=== PATIENT | female | born 1990 | race Caucasian/White ===

== ENCOUNTER 2019-10-02 09:10 | Day surgery (SDC) | payer MEDICAID, OTHER ==
[~2019-10-02 09:10] MED LIST: Buffered Lidocaine 1% SYRIN* 1 ML/SYRINGE INTRADERM ONE; Dexamethasone TAB* 4 MG PO ONE; DiMENhydriNATE IV* 50 MG/ML VIAL IV PUSH PRN; Famotidine IV* 10 MG/ML 2 ML (20 mg) IV ONE; HYDROmorphone INJ1* 1 MG/ML SYRINGE IV PRN; Lactated Ringers 1000 ML Bag* 1,000 ML IV SCH; Naloxone* 0.4 MG/ML 1 ML VIAL IV PRN; Ondansetron ODT TAB* 4 MG PO ONE; PROCHLORPERAZINE INJ 5 MG/ML 2 ML VIAL IV PRN; oxyCODONE TAB* 5 MG TAB PO PRN
[2019-10-02] MEDS ORDERED: Famotidine IV* 10 MG/ML 2 ML (20 mg) ONE (10:00)
[2019-10-02] MEDS ORDERED: Ondansetron ODT TAB* 4 MG ONE (10:00)
[2019-10-02] MEDS ORDERED: Dexamethasone TAB* 4 MG ONE (10:00)
[2019-10-02] MEDS ORDERED: Ferric Subsulfate* 1 dose = 10 mL Solution TOPICAL ONE (11:00)
[2019-10-02] MEDS ORDERED: Midazolam* 1 MG/ML 5 ML VIAL (5 MG) ONE (11:04)
[2019-10-02] MEDS ORDERED: KETAMINE HCL* 50 MG/ML 10 ML VIAL ONE (11:04)
[2019-10-02] MEDS ORDERED: fentaNYL* 50 MCG/ML 2 ML VIAL (100 MCG VIAL) ONE ×2 (11:04→13:31)
[2019-10-02] MEDS ORDERED: Lidocaine 2% PF * 5 ML VIAL ONE (11:06)
[2019-10-02] MEDS ORDERED: Ketorolac INJ* 30 MG/ML 1 ML VIAL ONE (11:06)
[2019-10-02] MEDS ORDERED: Propofol* 10 MG/ML 20 ML BTL ONE (11:06)
[2019-10-02] MEDS ORDERED: Lidocaine 1% INJ* 10 MG/ML 30 ML SDV ONE (11:55)
[2019-10-02] MEDS ORDERED: VASOPRESSIN 20 UNITS/ML 1 ML VIAL ONE (11:55)
[2019-10-02] MEDS ORDERED: Iodine Strong (LUGOL'S)* 14 ML BTL ONE (11:55)
[2019-10-02] MEDS ORDERED: Acetic Acid 0.25%* 250 ML BTL ONE (12:24)
[2019-10-02] MEDS ORDERED: Acetaminophen IV 1GM/100ML * 100 ML ONE (12:28)
[2019-10-02] MEDS ORDERED: DiMENhydriNATE IV* 50 MG/ML VIAL ONE (13:28)
[2019-10-02] MEDS: fentaNYL* 50 MCG/ML 2 ML VIAL (100 MCG VIAL) IV PRN ×3 (13:32→13:54)
[2019-10-02] MEDS ORDERED: oxyCODONE TAB* 5 MG TAB ONE (13:57)
[2019-10-02 14:48] VITALS: BP 133/86
--- NOTE | 2019-10-02 21:44 | OP ---
DATE OF OPERATION: 10/02/19 [facility] DATE OF : 89 SURGEON: Jero Gamble MD ANESTHESIOLOGIST: Dr. Busby. ANESTHESIA: General endotracheal anesthesia. PRE-OP DIAGNOSES: Severe cervical dysplasia and IUD removal and insertion. POST-OP DIAGNOSES: Severe cervical dysplasia and IUD removal and insertion. OPERATIVE PROCEDURE: Colposcopy; Strange cone biopsy of the cervix, size medium extended; endocervical curettage, removal of Liletta IUD and insertion of Mirena IUD. ESTIMATED BLOOD LOSS: Approximately 50 cc. SPECIMENS: Cone biopsy in 2 parts and endocervical curettage. FINDINGS: Midline cervix, Liletta IUD intact at removal. Acetowhite changes at 1 and 7 o'clock. No abnormal vessels seen. Uterus sounds to 8.5. COMPLICATIONS: None. COUNTS: Sponge, lap, and needle count correct x2. CONDITION: The patient was brought to recovery room awake and in stable condition. DESCRIPTION OF PROCEDURE: The patient was brought to the operating room. When general anesthesia was found to be adequate, the patient was draped in the usual sterile fashion in the dorsal lithotomy position. A prep was not performed because we are doing a colposcopy. A time-out was performed. Urine test was confirmed to be negative. A coated speculum was inserted. The cervix was visualized. Liletta strings visible. Decision was made to remove Liletta as the strings would be cut during the cone biopsy making future removal difficult. Liletta IUD strings were grasped with forcep and the IUD was removed with one gentle pull. The Liletta was examined and found to be intact with both strings. Colposcopy was performed with vinegar and Lugol's. Acetowhite changed at 1 and 7, did not extend far out onto cervix. Strange cone size medium extended was performed, encompassing the acetowhite white areas. the cut was at 12 o'clock. The specimen was removed in 2 parts, so 12 to 6 o'clock and 6 to 11:59. The specimen in half upon removal from the vagibnal canal. Endocervical curettage was performed. Hemostasis was achieved with the roller-ball cautery and Monsel solution. When hemostasis was achieved, the cervix was prepped with Betadine. The anterior lip of the cervix was grasped with a single-tooth tenaculum. The uterus sounded to 8.5 and the Mirena IUD was inserted. The strings were trimmed to approximately 4 cm. Once again, hemostasis was assured. All instruments removed from the vagina. Excellent hemostasis was noted. The Mirena IUD is a lot number [id number] with an expiration for insertion of December 2019. [id number]/[facility] #: [id number] [facility]
== END 2019-10-02 15:36 | disposition home or self-care (01) ==
LOC: OR 09:10
PROVIDERS: ATTEND Obstetrics & Gynecology
DX: D06.9 Carcinoma in situ of cervix, unspecified (principal); F17.210 Nicotine dependence, cigarettes, uncomplicated
CPT/HCPCS: 81025; 88305; 88307; A9270-GY; J1240; J1885; J2250; J2704; J3010; J7300; J8540